=== PATIENT | male | born 1940 | race African-American/Black ===

== ENCOUNTER 2018-11-16 15:13 | Inpatient (IN) | payer MEDICARE, OTHER ==
[~2018-11-16] VITALS: Ht 175.3 cm; Wt 79.4 kg
[2018-11-16] MEDS ORDERED: SODIUM CHLORIDE 0.9% 1,000 ML IV ONE (15:41)
[2018-11-16] MEDS ORDERED: DEXTROSE 50% WATER 50ML SYRINGE IV ONE (15:45)
[2018-11-16 16:30] LABS: EOSINOPHILS % 0.4 % (0.0-5.0); HEMATOCRIT. 42.7 % (42.0-52.0); HEMOGLOBIN. 14.2 g/dL (14.0-18.0); LYMPHOCYTES % 14.7 % (20.0-50.0); MEAN CORPUSCULAR HEMOGLOBIN 27.5 pg (28.0-32.0); MEAN CORPUSCULAR VOLUME 82.7 fL (80.0-94.0); MEAN PLATELET VOLUME 8.2 fl (7.4-10.4); MONOCYTES % 5.1 % (2.0-8.0); NEUTROPHILS % 78.8 % (40.0-76.0); PLATELET 330 x1000/uL (130-400); RED BLOOD CELL COUNT 5.17 mill/uL (4.7-6.1); RED CELL DISTRIBUTION WIDTH 15.2 % (11.6-14.6)
[2018-11-16 16:37] LABS: CHLORIDE 104 mEq/L (98-107)
[2018-11-16 16:40] LABS: PROTHROMBIN TIME 10.7 sec (9.6-11.0)
[2018-11-16 16:41] LABS: ETHANOL BLOOD < 10 mg/dL
[2018-11-16] MEDS ORDERED: ASPIRIN 325MG EC TABLET PO ONE (17:45)
[2018-11-16 17:48] LABS: CLARITY URINE CLEAR (CLEAR); COLOR URINE YELLOW (YELLOW); KETONES URINE 1+ (NEGATIVE); LEUKOCYTE ESTERASE URINE 1+ (NEGATIVE); NITRITE URINE NEGATIVE (NEGATIVE); OCCULT BLOOD URINE NEGATIVE (NEGATIVE); PROTEIN URINE NEGATIVE (NEGATIVE); SPECIFIC GRAVITY URINE 1.022 (1.005-1.030)
[2018-11-16 17:57] LABS: *AMPHETAMINES SCREEN URINE NEGATIVE (NEGATIVE); *BARBITURATES SCREEN URINE NEGATIVE (NEGATIVE); *BENZODIAZEPINES SCREEN URINE NEGATIVE (NEGATIVE); *COCAINE SCREEN URINE NEGATIVE (NEGATIVE); METHADONE URINE SCREEN NEGATIVE (NEGATIVE)
[2018-11-16 17:58] LABS: CANNABINOID URINE SCREEN NEGATIVE (NEGATIVE); OPIATES URINE SCREEN NEGATIVE (NEGATIVE); PHENCYCLIDINE URINE SCREEN NEGATIVE (NEGATIVE)
[2018-11-16] MEDS ORDERED: CEFTRIAXONE 1 G PREMIX 50 ML IV ONE (19:15)
[2018-11-16] MEDS ORDERED: MAGNESIUM/ALUMINUM HYDROXIDE/SIMETHICONE 30ML UDC PO PRN (20:15)
[2018-11-16] MEDS ORDERED: ONDANSETRON HCL 4MG/2ML INJ IV PRN (20:15)
[2018-11-16] MEDS ORDERED: ACETAMINOPHEN 325MG TABLET PO PRN (20:15)
[2018-11-16] MEDS ORDERED: LORAZEPAM 2MG/ML CPJ IV PRN (20:15)
[2018-11-16] MEDS ORDERED: HYDROMORPHONE HCL/PF 2MG/ML CPJ IV PRN (20:15)
[2018-11-16] MEDS ORDERED: HYDROCODONE/ACETAMINOPHEN 5/325MG TABLET PO PRN (20:15)
[2018-11-16] MEDS ORDERED: IPRATROPIUM/ALBUTEROL 0.5-3(2.5)MG/3ML NEB INH PRN (20:15)
[2018-11-16] MEDS ORDERED: GUAIFENESIN 200MG/10ML SUGAR FREE UDC PO PRN (20:15)
[2018-11-16] MEDS ORDERED: DIPHENHYDRAMINE 50MG/ML VIAL IV PRN (20:15)
[2018-11-16] MEDS ORDERED: NA PHOS,M-B/NA PHOS,DI-BA ENEMA 118ML PR PRN (20:15)
[2018-11-16] MEDS ORDERED: DOCUSATE SODIUM 100MG CAPSULE PO PRN (20:15)
[2018-11-16 23:04] LABS: CHLORIDE 110 mEq/L (98-107)
[2018-11-16 23:20] VITALS: BP 182/81
[2018-11-16 23:33] VITALS: BP 182/81
[2018-11-17] VITALS (7 sets, daily range): BP systolic 122–175; BP diastolic 66–91
[2018-11-17] MEDS: CLONIDINE 0.1MG TABLET PO PRN (00:35)
[2018-11-17] MEDS: DEXT 5%/0.45% NACL 1000ML 1,000 ML IV SCH ×2 (01:10→17:47)
[2018-11-17] MEDS ORDERED: DEXTROSE 50% WATER 50ML SYRINGE IV PRN (05:15)
[2018-11-17] MEDS: BLOOD SUGAR DIAGNOSTIC STRIP TEST SCH ×4 (07:38→21:49)
[2018-11-17] MEDS: INSULIN LISPRO 100 UNITS/ML SUBCUT SCH ×4 (07:38→21:00)
[2018-11-17 07:48] LABS: BASOPHILS % 0.6 % (0.0-2.0); EOSINOPHILS % 1.6 % (0.0-5.0); HEMATOCRIT. 38.4 % (42.0-52.0); HEMOGLOBIN. 12.8 g/dL (14.0-18.0); LYMPHOCYTES % 22.9 % (20.0-50.0); MEAN CORPUSCULAR HEMOGLOBIN 27.4 pg (28.0-32.0); MEAN CORPUSCULAR VOLUME 82.2 fL (80.0-94.0); MEAN PLATELET VOLUME 8.4 fl (7.4-10.4); MONOCYTES % 10.2 % (2.0-8.0); NEUTROPHILS % 64.7 % (40.0-76.0); PLATELET 259 x1000/uL (130-400); RED BLOOD CELL COUNT 4.67 mill/uL (4.7-6.1); RED CELL DISTRIBUTION WIDTH 15.4 % (11.6-14.6)
[2018-11-17 08:19] LABS: CHLORIDE 110 mEq/L (98-107)
[2018-11-17 08:35] LABS: T4 FREE 1.03 ng/dL (0.76-1.46)
[2018-11-17 08:36] LABS: LDL CHOLESTEROL 73 mg/dL (5-100)
[2018-11-17 08:37] LABS: HDL CHOLESTEROL 46 mg/dL (40-59)
[2018-11-17] MEDS: ASPIRIN 81MG EC TABLET PO SCH (09:42)
[2018-11-18] VITALS: BP 139/84
[2018-11-18 04:00] VITALS: BP 141/71
[2018-11-18] MEDS: BLOOD SUGAR DIAGNOSTIC STRIP TEST SCH ×4 (06:11→21:00)
[2018-11-18] MEDS: INSULIN LISPRO 100 UNITS/ML SUBCUT SCH ×4 (07:25→21:00)
[2018-11-18 08:00] VITALS: BP 154/84
[2018-11-18] MEDS: ASPIRIN 81MG EC TABLET PO SCH (09:49)
[2018-11-18] MEDS: DEXT 5%/0.45% NACL 1000ML 1,000 ML IV SCH (09:53)
[2018-11-18 12:05] VITALS: BP 146/79
[2018-11-18 15:39] VITALS: BP 143/74
[2018-11-18 20:00] VITALS: BP 170/93
[2018-11-19] VITALS: BP 152/89
[2018-11-19] MEDS: DEXT 5%/0.45% NACL 1000ML 1,000 ML IV SCH ×2 (03:06→21:50)
[2018-11-19 04:00] VITALS: BP 128/76
[2018-11-19] MEDS: BLOOD SUGAR DIAGNOSTIC STRIP TEST SCH ×4 (06:47→21:41)
[2018-11-19 07:08] LABS: BASOPHILS % 0.7 % (0.0-2.0); EOSINOPHILS % 2.9 % (0.0-5.0); HEMOGLOBIN. 12.7 g/dL (14.0-18.0); LYMPHOCYTES % 26.9 % (20.0-50.0); MEAN CORPUSCULAR HEMOGLOBIN 27.6 pg (28.0-32.0); MEAN CORPUSCULAR VOLUME 82.6 fL (80.0-94.0); MEAN PLATELET VOLUME 7.9 fl (7.4-10.4); MONOCYTES % 8.6 % (2.0-8.0); NEUTROPHILS % 60.9 % (40.0-76.0); PLATELET 253 x1000/uL (130-400); RED CELL DISTRIBUTION WIDTH 15.9 % (11.6-14.6)
[2018-11-19 07:15] LABS: CHLORIDE 109 mEq/L (98-107)
[2018-11-19 08:00] VITALS: BP 158/81
[2018-11-19] MEDS: INSULIN LISPRO 100 UNITS/ML SUBCUT SCH ×4 (08:10→21:00)
[2018-11-19] MEDS: ASPIRIN 81MG EC TABLET PO SCH (09:43)
[2018-11-19 12:00] VITALS: BP 138/81
[2018-11-19 16:00] VITALS: BP 128/79
[2018-11-19 20:00] VITALS: BP 157/84
[2018-11-20] VITALS (8 sets, daily range): BP systolic 134–166; BP diastolic 68–86
[2018-11-20] MEDS: BLOOD SUGAR DIAGNOSTIC STRIP TEST SCH ×3 (06:24→17:40)
[2018-11-20] MEDS: INSULIN LISPRO 100 UNITS/ML SUBCUT SCH ×3 (06:25→17:59)
[2018-11-20] MEDS: ASPIRIN 81MG EC TABLET PO SCH (08:42)
[2018-11-20] MEDS: CLONIDINE 0.1MG TABLET PO PRN (11:59)
[2018-11-20] MEDS: DEXT 5%/0.45% NACL 1000ML 1,000 ML IV SCH (12:00)
== END 2018-11-20 19:52 | DRG 637 ==
LOC: ER 15:13 → 7WST 19:13 → EDBEDREQ 19:18 → ENRESERV 21:49 → UNDODISIN 11-17 16:02
PROVIDERS: ADMIT Internal Medicine; ATTEND Internal Medicine
DX: E11.649 Type 2 diabetes mellitus with hypoglycemia without coma (principal); G93.41 Metabolic encephalopathy; I10 Essential (primary) hypertension; Z79.82 Long term (current) use of aspirin; Z79.899 Other long term (current) drug therapy
CPT/HCPCS: 36415; 71045; 80048; 80061; 80305; 80320; 82962; 83735; 83880; 84439; 84443; 84484; 93005; 97162; 99285; J0696; J1815; J7030; G0480

== ENCOUNTER 2018-11-26 11:30 | Inpatient (IN) | payer MEDICARE, OTHER ==
[~2018-11-26] VITALS: Ht 154.9 cm; Wt 66.2 kg
[2018-11-26 12:23] LABS: BASOPHILS % 0.6 % (0.0-2.0); EOSINOPHILS % 0.6 % (0.0-5.0); HEMATOCRIT. 44.6 % (42.0-52.0); HEMOGLOBIN. 14.7 g/dL (14.0-18.0); LYMPHOCYTES % 12.4 % (20.0-50.0); MEAN CORPUSCULAR VOLUME 84.6 fL (80.0-94.0); MEAN PLATELET VOLUME 8.8 fl (7.4-10.4); MONOCYTES % 6.9 % (2.0-8.0); NEUTROPHILS % 79.5 % (40.0-76.0); PLATELET 287 x1000/uL (130-400); RED BLOOD CELL COUNT 5.27 mill/uL (4.7-6.1); RED CELL DISTRIBUTION WIDTH 16.4 % (11.6-14.6)
[2018-11-26 12:27] LABS: CHLORIDE 107 mEq/L (98-107)
[2018-11-26 12:36] LABS: ETHANOL BLOOD < 10 mg/dL
[2018-11-26 16:25] LABS: *BARBITURATES SCREEN URINE NEGATIVE (NEGATIVE); *BENZODIAZEPINES SCREEN URINE NEGATIVE (NEGATIVE); *COCAINE SCREEN URINE NEGATIVE (NEGATIVE)
[2018-11-26 16:26] LABS: *AMPHETAMINES SCREEN URINE NEGATIVE (NEGATIVE); CANNABINOID URINE SCREEN NEGATIVE (NEGATIVE); METHADONE URINE SCREEN NEGATIVE (NEGATIVE); OPIATES URINE SCREEN NEGATIVE (NEGATIVE); PHENCYCLIDINE URINE SCREEN NEGATIVE (NEGATIVE)
[2018-11-26 21:52] VITALS: BP 151/96
[2018-11-26] MEDS ORDERED: HYDROCODONE/ACETAMINOPHEN 5/325MG TABLET PO PRN (22:45)
[2018-11-26] MEDS ORDERED: CLONIDINE 0.1MG TABLET PO PRN (22:45)
[2018-11-26] MEDS ORDERED: DEXTROSE 50% WATER 50ML SYRINGE IV PRN (22:45)
[2018-11-26] MEDS ORDERED: ACETAMINOPHEN 325MG TABLET PO PRN (22:45)
[2018-11-26] MEDS ORDERED: ONDANSETRON HCL 4MG/2ML INJ IV PRN (22:45)
[2018-11-26] MEDS: SODIUM CHLORIDE 0.9% 1,000 ML IV SCH (23:19)
[2018-11-26] MEDS: LOSARTAN POTASSIUM 25 MG TABLET PO SCH (23:19)
[2018-11-27 04:00] VITALS: BP 109/61
[2018-11-27] MEDS: BLOOD SUGAR DIAGNOSTIC STRIP TEST SCH ×4 (05:07→20:55)
[2018-11-27 06:32] LABS: HEMATOCRIT. 34.6 % (42.0-52.0); HEMOGLOBIN. 11.7 g/dL (14.0-18.0); MEAN CORPUSCULAR HEMOGLOBIN 28.1 pg (28.0-32.0); MEAN CORPUSCULAR VOLUME 82.6 fL (80.0-94.0); MEAN PLATELET VOLUME 8.3 fl (7.4-10.4); PLATELET 221 x1000/uL (130-400); RED BLOOD CELL COUNT 4.19 mill/uL (4.7-6.1); RED CELL DISTRIBUTION WIDTH 15.8 % (11.6-14.6)
[2018-11-27 06:53] LABS: CHLORIDE 115 mEq/L (98-107)
[2018-11-27 07:00] LABS: LDL CHOLESTEROL 62 mg/dL (5-100)
[2018-11-27 07:02] LABS: CREATINE KINASE 93 IU/L (39-308); HDL CHOLESTEROL 35 mg/dL (40-59)
[2018-11-27 07:04] LABS: CREATINE KINASE MB FRACTION 1.3 ng/mL (0.5-3.6)
[2018-11-27 08:00] VITALS: BP 112/72
[2018-11-27] MEDS: INSULIN LISPRO 100 UNITS/ML SUBCUT SCH ×4 (08:10→20:55)
[2018-11-27] MEDS: LOSARTAN POTASSIUM 25 MG TABLET PO SCH (09:01)
[2018-11-27] MEDS: ENOXAPARIN 40MG/0.4ML SYR SUBCUT SCH (09:02)
[2018-11-27] MEDS: SODIUM CHLORIDE 0.9% 1,000 ML IV SCH ×2 (09:02→18:25)
[2018-11-27 12:04] VITALS: BP 121/71
[2018-11-27 12:35] LABS: PLATELET ESTIMATE NORMAL
[2018-11-27 17:19] VITALS: BP 101/66
[2018-11-27 20:00] VITALS: BP 108/66
[2018-11-28] VITALS: BP 109/72
[2018-11-28 04:00] VITALS: BP 122/65
[2018-11-28] MEDS: BLOOD SUGAR DIAGNOSTIC STRIP TEST SCH ×4 (06:51→21:12)
[2018-11-28 08:00] VITALS: BP 130/77
[2018-11-28] MEDS: INSULIN LISPRO 100 UNITS/ML SUBCUT SCH ×4 (08:10→21:00)
[2018-11-28] MEDS: LOSARTAN POTASSIUM 25 MG TABLET PO SCH (09:30)
[2018-11-28] MEDS: ENOXAPARIN 40MG/0.4ML SYR SUBCUT SCH (09:31)
[2018-11-28 12:00] VITALS: BP 128/74
[2018-11-28 16:00] VITALS: BP 142/87
[2018-11-28 20:00] VITALS: BP 135/81
[2018-11-29] VITALS: BP 154/101
[2018-11-29 04:00] VITALS: BP 140/78
[2018-11-29] MEDS: BLOOD SUGAR DIAGNOSTIC STRIP TEST SCH ×4 (06:55→21:22)
[2018-11-29 08:00] VITALS: BP 152/78
[2018-11-29] MEDS: INSULIN LISPRO 100 UNITS/ML SUBCUT SCH ×4 (08:10→21:00)
[2018-11-29] MEDS: LOSARTAN POTASSIUM 25 MG TABLET PO SCH (09:00)
[2018-11-29] MEDS: ENOXAPARIN 40MG/0.4ML SYR SUBCUT SCH (09:45)
[2018-11-29 12:00] VITALS: BP 120/68
[2018-11-29 16:00] VITALS: BP 128/84
[2018-11-29 17:02] VITALS: BP 138/79
== END 2018-11-29 22:05 | DRG 312 ==
LOC: ER 11:30 → 7WST 16:03 → EDBEDREQTM 16:11 → EDBEDREQ 16:11 → ENRESERV 21:18
PROVIDERS: ADMIT Internal Medicine; ATTEND Internal Medicine
DX: R55 Syncope and collapse (principal); N17.9 Acute kidney failure, unspecified; E11.9 Type 2 diabetes mellitus without complications; I10 Essential (primary) hypertension; F03.90 Unspecified dementia, unspecified severity, without behavioral disturbance, psychotic disturbance, mood disturbance, and anxiety
CPT/HCPCS: 36415; 71045; 80048; 80061; 80305; 80320; 82550; 82553; 82962; 83036; 84484; 93005; 97162; 97166; 97530; 97535; 99285; J1650; J7030; G0480

== ENCOUNTER 2020-07-13 12:29 | Inpatient (IN) | payer MEDICARE, OTHER ==
[~2020-07-13] VITALS: Ht 175.3 cm; Wt 66.7 kg
[2020-07-13] MEDS ORDERED: SODIUM CHLORIDE 0.9% 1,000 ML IV ONE (12:45)
[2020-07-13 13:09] LABS: BASOPHILS % 0.5 % (0.0-2.0); EOSINOPHILS % 1.3 % (0.0-5.0); HEMATOCRIT. 41.8 % (42.0-52.0); HEMOGLOBIN. 13.6 g/dL (14.0-18.0); LYMPHOCYTES % 15.7 % (20.0-50.0); MEAN CORPUSCULAR HEMOGLOBIN 26.8 pg (28.0-32.0); MEAN CORPUSCULAR VOLUME 82.5 fL (80.0-94.0); MEAN PLATELET VOLUME 8.3 fl (7.4-10.4); NEUTROPHILS % 73.5 % (40.0-76.0); PLATELET 239 x1000/uL (130-400); RED BLOOD CELL COUNT 5.07 mill/uL (4.7-6.1); RED CELL DISTRIBUTION WIDTH 15.3 % (11.6-14.6)
[2020-07-13 13:17] LABS: CHLORIDE 109 mEq/L (98-107)
[2020-07-13 13:24] LABS: INR 1.1; PROTHROMBIN TIME 11.4 sec (9.6-11.0)
[2020-07-13 13:48] LABS: CLARITY URINE CLOUDY (CLEAR); COLOR URINE YELLOW (YELLOW); KETONES URINE TRACE (NEGATIVE); LEUKOCYTE ESTERASE URINE 2+ (NEGATIVE); NITRITE URINE NEGATIVE (NEGATIVE); OCCULT BLOOD URINE 1+ (NEGATIVE); PROTEIN URINE 1+ (NEGATIVE); SPECIFIC GRAVITY URINE 1.021 (1.005-1.030)
[2020-07-13] MEDS ORDERED: PIPERACILLIN/TAZ 3.375G PREMIX 50 ML IV NR (14:00)
[2020-07-13] MEDS ORDERED: PIPERACILLIN/TAZ 3.375G PREMIX 50 ML IV ONE (14:00)
[2020-07-13] MEDS ORDERED: VANCOMYCIN 1 G PREMIX 200 ML IV NR (14:00)
[2020-07-13] MEDS ORDERED: SODIUM CHLORIDE 0.9% 1000ML BAG (SEPSIS BOLUS) IV NR (14:00)
[2020-07-13] MEDS ORDERED: ONDANSETRON HCL 4MG/2ML INJ IV PRN (18:30)
[2020-07-13] MEDS ORDERED: DOCUSATE SODIUM 100MG CAPSULE PO PRN (18:30)
[2020-07-13] MEDS ORDERED: DEXTROSE 50% WATER 50ML SYRINGE IV PRN (18:30)
[2020-07-13] MEDS ORDERED: HYDRALAZINE 20MG/ML VIAL IV PRN (18:30)
[2020-07-13] MEDS ORDERED: ACETAMINOPHEN 325MG TABLET PO PRN (18:30)
[2020-07-13] MEDS ORDERED: MAGNESIUM/ALUMINUM HYDROXIDE/SIMETHICONE 30ML UDC PO PRN (18:30)
[2020-07-13] MEDS ORDERED: PIPERACILLIN/TAZ 3.375G PREMIX 50 ML IV SCH (18:30)
[2020-07-13] MEDS: SODIUM CHLORIDE 0.45% 1,000 ML IV SCH (19:10)
[2020-07-13] MEDS: INSULIN LISPRO 100 UNITS/ML SUBCUT SCH (20:20)
[2020-07-13] MEDS: BLOOD SUGAR DIAGNOSTIC STRIP TEST SCH (20:20)
[2020-07-13] MEDS: ENOXAPARIN 40MG/0.4ML SYR SUBCUT SCH (20:20)
[2020-07-13] MEDS: PIPERACILLIN/TAZOBACTAM 2.25 G in DEXTROSE 5% WATER 50 ML IV SCH (21:56)
[2020-07-13] MEDS: SODIUM CHLORIDE 0.9% INJ 3ML FLUSH IVF SCH (21:56)
[2020-07-13 22:30] VITALS: BP 151/84
[2020-07-14] VITALS: BP 151/84
[2020-07-14 00:59] LABS: CREATINE KINASE MB FRACTION 5.8 ng/mL (0.5-3.6)
[2020-07-14] MEDS ORDERED: LOSA25TA26 MT (03:36)
[2020-07-14] MEDS ORDERED: DONE5TAB7 MT (03:36)
[2020-07-14] MEDS ORDERED: CLON0.1T PO (03:36)
[2020-07-14 04:00] VITALS: BP 172/96
[2020-07-14] MEDS: PIPERACILLIN/TAZOBACTAM 2.25 G in DEXTROSE 5% WATER 50 ML IV SCH ×3 (06:17→21:24)
[2020-07-14] MEDS: SODIUM CHLORIDE 0.9% INJ 3ML FLUSH IVF SCH ×3 (06:17→21:24)
[2020-07-14] MEDS: BLOOD SUGAR DIAGNOSTIC STRIP TEST SCH ×4 (06:17→21:07)
[2020-07-14] MEDS: INSULIN LISPRO 100 UNITS/ML SUBCUT SCH ×4 (07:15→21:00)
[2020-07-14 07:22] LABS: CHLORIDE 115 mEq/L (98-107)
[2020-07-14 07:26] LABS: BASOPHILS % 0.5 % (0.0-2.0); EOSINOPHILS % 2.6 % (0.0-5.0); HEMATOCRIT. 39.8 % (42.0-52.0); HEMOGLOBIN. 12.8 g/dL (14.0-18.0); MEAN CORPUSCULAR HEMOGLOBIN 26.7 pg (28.0-32.0); MEAN CORPUSCULAR VOLUME 82.7 fL (80.0-94.0); MEAN PLATELET VOLUME 8.6 fl (7.4-10.4); MONOCYTES % 7.9 % (2.0-8.0); PLATELET 225 x1000/uL (130-400); RED BLOOD CELL COUNT 4.81 mill/uL (4.7-6.1); RED CELL DISTRIBUTION WIDTH 15.5 % (11.6-14.6)
[2020-07-14 07:31] LABS: HDL CHOLESTEROL 49 mg/dL (40-59)
[2020-07-14 07:34] LABS: T4 FREE 1.13 ng/dL (0.76-1.46)
[2020-07-14 07:35] LABS: LDL CHOLESTEROL 55 mg/dL (5-100)
[2020-07-14 07:39] LABS: CREATINE KINASE 311 IU/L (39-308)
[2020-07-14 08:00] VITALS: BP 169/90
[2020-07-14] MEDS ORDERED: PNEUMOCOCCAL 23-VAL P-SAC VAC 0.5 ML IM ONE (09:00)
[2020-07-14] MEDS ORDERED: INFLUENZA VACCINE 05/PF 0.5 ML VIAL IM ONE (09:00)
[2020-07-14] MEDS: CLONIDINE 0.1MG TABLET PO PRN (09:08)
[2020-07-14 12:00] VITALS: BP 130/77
[2020-07-14 16:00] VITALS: BP 132/76
[2020-07-14] MEDS: SODIUM CHLORIDE 0.45% 1,000 ML IV SCH (18:46)
[2020-07-14 20:00] VITALS: BP 131/67
[2020-07-14] MEDS: ENOXAPARIN 40MG/0.4ML SYR SUBCUT SCH (20:36)
[2020-07-14 21:47] LABS: VITAMIN B12 SERUM 667 pg/mL (211-911)
[2020-07-15] VITALS (7 sets, daily range): BP systolic 120–173; BP diastolic 69–92
[2020-07-15] MEDS: PIPERACILLIN/TAZOBACTAM 2.25 G in DEXTROSE 5% WATER 50 ML IV SCH ×3 (05:17→21:38)
[2020-07-15] MEDS: SODIUM CHLORIDE 0.9% INJ 3ML FLUSH IVF SCH ×3 (05:18→21:38)
[2020-07-15] MEDS: BLOOD SUGAR DIAGNOSTIC STRIP TEST SCH ×4 (06:16→21:00)
[2020-07-15] MEDS: INSULIN LISPRO 100 UNITS/ML SUBCUT SCH ×4 (06:16→21:00)
[2020-07-15] MEDS: CLONIDINE 0.1MG TABLET PO PRN (08:54)
[2020-07-15 16:48] LABS: *AMPHETAMINES SCREEN URINE NEGATIVE (NEGATIVE); *BARBITURATES SCREEN URINE NEGATIVE (NEGATIVE); *BENZODIAZEPINES SCREEN URINE NEGATIVE (NEGATIVE)
[2020-07-15 16:49] LABS: *COCAINE SCREEN URINE NEGATIVE (NEGATIVE); CANNABINOID URINE SCREEN NEGATIVE (NEGATIVE); METHADONE URINE SCREEN NEGATIVE (NEGATIVE); OPIATES URINE SCREEN NEGATIVE (NEGATIVE); PHENCYCLIDINE URINE SCREEN NEGATIVE (NEGATIVE)
[2020-07-15] MEDS: SODIUM CHLORIDE 0.45% 1,000 ML IV SCH (18:07)
[2020-07-15] MEDS: ENOXAPARIN 40MG/0.4ML SYR SUBCUT SCH (21:37)
[2020-07-16] VITALS: BP 154/77
[2020-07-16 04:00] VITALS: BP 137/87
[2020-07-16] MEDS: PIPERACILLIN/TAZOBACTAM 3.375 G in DEXT 5% WATER 100 ML IV SCH ×4 (04:23→23:18)
[2020-07-16] MEDS: SODIUM CHLORIDE 0.9% INJ 3ML FLUSH IVF SCH ×3 (05:13→22:20)
[2020-07-16] MEDS: BLOOD SUGAR DIAGNOSTIC STRIP TEST SCH ×4 (06:44→20:45)
[2020-07-16] MEDS: INSULIN LISPRO 100 UNITS/ML SUBCUT SCH ×4 (07:15→20:46)
[2020-07-16 08:00] VITALS: BP 136/78
[2020-07-16] MEDS: LORAZEPAM 2MG/ML CPJ IV PRN ×3 (08:23→20:49)
[2020-07-16] MEDS: DIPHENHYDRAMINE 50MG/ML VIAL IV PRN (11:41)
[2020-07-16 12:00] VITALS: BP 139/92
[2020-07-16] MEDS: CLONIDINE 0.1MG TABLET PO PRN (12:23)
[2020-07-16 16:00] VITALS: BP 151/96
[2020-07-16] MEDS: SODIUM CHLORIDE 0.45% 1,000 ML IV SCH (17:12)
[2020-07-16 20:00] VITALS: BP 147/86
[2020-07-16] MEDS: ENOXAPARIN 40MG/0.4ML SYR SUBCUT SCH (20:49)
[2020-07-17] VITALS: BP 139/80
[2020-07-17] MEDS: LORAZEPAM 2MG/ML CPJ IV PRN ×2 (02:42→10:13)
[2020-07-17 04:00] VITALS: BP 154/80
[2020-07-17] MEDS: SODIUM CHLORIDE 0.9% INJ 3ML FLUSH IVF SCH ×3 (05:20→21:11)
[2020-07-17] MEDS: PIPERACILLIN/TAZOBACTAM 3.375 G in DEXT 5% WATER 100 ML IV SCH ×3 (05:20→18:11)
[2020-07-17] MEDS: BLOOD SUGAR DIAGNOSTIC STRIP TEST SCH ×4 (06:18→20:18)
[2020-07-17] MEDS: INSULIN LISPRO 100 UNITS/ML SUBCUT SCH ×4 (06:19→20:18)
[2020-07-17 08:00] VITALS: BP 130/31
[2020-07-17 12:00] VITALS: BP 146/86
[2020-07-17 16:00] VITALS: BP 142/88
[2020-07-17] MEDS: SODIUM CHLORIDE 0.45% 1,000 ML IV SCH (18:11)
[2020-07-17 20:00] VITALS: BP 146/87
[2020-07-17] MEDS: ENOXAPARIN 40MG/0.4ML SYR SUBCUT SCH (20:14)
[2020-07-18] VITALS (7 sets, daily range): BP systolic 135–167; BP diastolic 67–86
[2020-07-18] MEDS: PIPERACILLIN/TAZOBACTAM 3.375 G in DEXT 5% WATER 100 ML IV SCH ×4 (01:45→17:09)
[2020-07-18] MEDS: SODIUM CHLORIDE 0.9% INJ 3ML FLUSH IVF SCH ×3 (05:15→20:12)
[2020-07-18] MEDS: INSULIN LISPRO 100 UNITS/ML SUBCUT SCH ×4 (05:18→20:20)
[2020-07-18] MEDS: BLOOD SUGAR DIAGNOSTIC STRIP TEST SCH ×4 (05:18→20:12)
[2020-07-18 06:30] LABS: BASOPHILS % 0.7 % (0.0-2.0); EOSINOPHILS % 2.8 % (0.0-5.0); HEMATOCRIT. 40.1 % (42.0-52.0); HEMOGLOBIN. 13.3 g/dL (14.0-18.0); LYMPHOCYTES % 18.9 % (20.0-50.0); MEAN CORPUSCULAR VOLUME 81.5 fL (80.0-94.0); MEAN PLATELET VOLUME 9.1 fl (7.4-10.4); MONOCYTES % 11.6 % (2.0-8.0); PLATELET 268 x1000/uL (130-400); RED BLOOD CELL COUNT 4.92 mill/uL (4.7-6.1); RED CELL DISTRIBUTION WIDTH 15.4 % (11.6-14.6)
[2020-07-18 07:19] LABS: CHLORIDE 110 mEq/L (98-107)
[2020-07-18] MEDS: CLONIDINE 0.1MG TABLET PO PRN (12:25)
[2020-07-18] MEDS: SODIUM CHLORIDE 0.45% 1,000 ML IV SCH (17:29)
[2020-07-18] MEDS: ENOXAPARIN 40MG/0.4ML SYR SUBCUT SCH (20:12)
[2020-07-18] MEDS: DIPHENHYDRAMINE 50MG/ML VIAL IV PRN (21:27)
[2020-07-19] VITALS: BP 170/93
[2020-07-19] MEDS: CLONIDINE 0.1MG TABLET PO PRN ×2 (00:01→18:23)
[2020-07-19 04:00] VITALS: BP 130/71
[2020-07-19] MEDS: SODIUM CHLORIDE 0.9% INJ 3ML FLUSH IVF SCH ×3 (05:35→21:34)
[2020-07-19] MEDS: BLOOD SUGAR DIAGNOSTIC STRIP TEST SCH ×3 (05:35→21:34)
[2020-07-19] MEDS: INSULIN LISPRO 100 UNITS/ML SUBCUT SCH ×3 (05:35→21:00)
[2020-07-19 08:00] VITALS: BP 156/94
[2020-07-19 12:00] VITALS: BP 146/77
[2020-07-19 16:00] VITALS: BP 177/93
[2020-07-19] MEDS: SODIUM CHLORIDE 0.45% 1,000 ML IV SCH (18:24)
[2020-07-19 20:00] VITALS: BP 180/95
[2020-07-19] MEDS: ENOXAPARIN 40MG/0.4ML SYR SUBCUT SCH (21:30)
[2020-07-20] VITALS (7 sets, daily range): BP systolic 101–180; BP diastolic 56–95
[2020-07-20] MEDS: IPRATROPIUM/ALBUTEROL 0.5-3(2.5)MG/3ML NEB NEB PRN ×2 (02:13→12:06)
[2020-07-20] MEDS: SODIUM CHLORIDE 0.9% INJ 3ML FLUSH IVF SCH ×3 (05:10→21:40)
[2020-07-20] MEDS: INSULIN LISPRO 100 UNITS/ML SUBCUT SCH ×4 (06:45→21:00)
[2020-07-20] MEDS: BLOOD SUGAR DIAGNOSTIC STRIP TEST SCH ×4 (06:45→21:38)
[2020-07-20] MEDS: SODIUM CHLORIDE 0.45% 1,000 ML IV SCH ×2 (17:35→21:42)
[2020-07-20] MEDS: ENOXAPARIN 40MG/0.4ML SYR SUBCUT SCH (21:40)
[2020-07-21] VITALS (7 sets, daily range): BP systolic 132–158; BP diastolic 73–82
[2020-07-21] MEDS: BLOOD SUGAR DIAGNOSTIC STRIP TEST SCH ×4 (05:59→20:47)
[2020-07-21] MEDS: INSULIN LISPRO 100 UNITS/ML SUBCUT SCH ×4 (05:59→20:47)
[2020-07-21] MEDS: SODIUM CHLORIDE 0.9% INJ 3ML FLUSH IVF SCH ×3 (06:00→20:49)
[2020-07-21] MEDS ORDERED: IPRATROPIUM/ALBUTEROL 0.5-3(2.5)MG/3ML NEB HHN PRN (14:30)
[2020-07-21] MEDS: IPRATROPIUM/ALBUTEROL 0.5-3(2.5)MG/3ML NEB HHN SCH ×2 (15:58→21:19)
[2020-07-21] MEDS: ENOXAPARIN 40MG/0.4ML SYR SUBCUT SCH (20:46)
[2020-07-21] MEDS: SODIUM CHLORIDE 0.45% 1,000 ML IV SCH (20:49)
[2020-07-22] VITALS: BP 139/77
[2020-07-22] MEDS: IPRATROPIUM/ALBUTEROL 0.5-3(2.5)MG/3ML NEB HHN SCH ×6 (00:42→21:33)
[2020-07-22] MEDS: ACETYLCYSTEINE 100MG/ML 10% VIAL 4ML INH SCH ×3 (00:42→16:32)
[2020-07-22 04:00] VITALS: BP 142/76
[2020-07-22] MEDS: SODIUM CHLORIDE 0.9% INJ 3ML FLUSH IVF SCH ×3 (06:00→21:15)
[2020-07-22] MEDS: INSULIN LISPRO 100 UNITS/ML SUBCUT SCH ×4 (06:39→21:00)
[2020-07-22] MEDS: BLOOD SUGAR DIAGNOSTIC STRIP TEST SCH ×4 (06:39→21:14)
[2020-07-22 08:00] VITALS: BP 109/56
[2020-07-22 12:00] VITALS: BP 135/75
[2020-07-22 16:00] VITALS: BP 157/82
[2020-07-22] MEDS: GUAIFENESIN 200MG/10ML SUGAR FREE UDC PO PRN (16:36)
[2020-07-22 20:00] VITALS: BP 153/87
[2020-07-22] MEDS: ENOXAPARIN 40MG/0.4ML SYR SUBCUT SCH (21:15)
[2020-07-23] VITALS: BP 178/95
[2020-07-23] MEDS: CLONIDINE 0.1MG TABLET PO PRN (00:15)
[2020-07-23] MEDS: ACETYLCYSTEINE 100MG/ML 10% VIAL 4ML INH SCH ×4 (01:30→21:15)
[2020-07-23] MEDS: IPRATROPIUM/ALBUTEROL 0.5-3(2.5)MG/3ML NEB HHN SCH ×6 (01:30→21:15)
[2020-07-23 04:00] VITALS: BP 152/80
[2020-07-23] MEDS: BLOOD SUGAR DIAGNOSTIC STRIP TEST SCH ×4 (06:45→20:16)
[2020-07-23] MEDS: INSULIN LISPRO 100 UNITS/ML SUBCUT SCH ×4 (07:15→20:16)
[2020-07-23 08:00] VITALS: BP 117/75
[2020-07-23 12:00] VITALS: BP 145/83
[2020-07-23] MEDS: SODIUM CHLORIDE 0.9% INJ 3ML FLUSH IVF SCH ×2 (13:44→20:16)
[2020-07-23] MEDS: LORAZEPAM 2MG/ML CPJ IV PRN ×2 (15:23→22:32)
[2020-07-23 16:00] VITALS: BP 141/87
[2020-07-23 20:00] VITALS: BP 95/88
[2020-07-23] MEDS: DIPHENHYDRAMINE 50MG/ML VIAL IV PRN (20:16)
[2020-07-23] MEDS: ENOXAPARIN 40MG/0.4ML SYR SUBCUT SCH (20:18)
[2020-07-24] VITALS: BP 149/95
[2020-07-24] MEDS: IPRATROPIUM/ALBUTEROL 0.5-3(2.5)MG/3ML NEB HHN SCH ×5 (00:43→20:34)
[2020-07-24 04:00] VITALS: BP 150/89
[2020-07-24] MEDS: ACETYLCYSTEINE 100MG/ML 10% VIAL 4ML INH SCH ×3 (04:26→16:12)
[2020-07-24] MEDS: INSULIN LISPRO 100 UNITS/ML SUBCUT SCH ×4 (06:07→21:00)
[2020-07-24] MEDS: BLOOD SUGAR DIAGNOSTIC STRIP TEST SCH ×4 (06:07→20:13)
[2020-07-24] MEDS: SODIUM CHLORIDE 0.9% INJ 3ML FLUSH IVF SCH ×3 (06:07→20:13)
[2020-07-24 08:00] VITALS: BP 172/96
[2020-07-24] MEDS: CLONIDINE 0.1MG TABLET PO PRN ×2 (08:58→21:52)
[2020-07-24 12:00] VITALS: BP 129/77
[2020-07-24 16:00] VITALS: BP 151/98
[2020-07-24 20:00] VITALS: BP 168/105
[2020-07-24] MEDS: ENOXAPARIN 40MG/0.4ML SYR SUBCUT SCH (20:12)
[2020-07-24] MEDS: GUAIFENESIN 200MG/10ML SUGAR FREE UDC PO PRN (20:12)
[2020-07-24] MEDS: DIPHENHYDRAMINE 50MG/ML VIAL IV PRN (20:14)
[2020-07-25] VITALS: BP 130/86
[2020-07-25] MEDS: IPRATROPIUM/ALBUTEROL 0.5-3(2.5)MG/3ML NEB HHN SCH ×5 (00:43→20:46)
[2020-07-25] MEDS: ACETYLCYSTEINE 100MG/ML 10% VIAL 4ML INH SCH ×3 (00:43→15:34)
[2020-07-25] MEDS: BLOOD SUGAR DIAGNOSTIC STRIP TEST SCH ×4 (06:19→21:02)
[2020-07-25] MEDS: SODIUM CHLORIDE 0.9% INJ 3ML FLUSH IVF SCH ×3 (06:19→23:09)
[2020-07-25] MEDS: INSULIN LISPRO 100 UNITS/ML SUBCUT SCH ×5 (07:04→21:00)
[2020-07-25 08:00] VITALS: BP 141/86
[2020-07-25 12:00] VITALS: BP 123/88
[2020-07-25 16:00] VITALS: BP 104/88
[2020-07-25 20:00] VITALS: BP 114/75
[2020-07-25] MEDS: ENOXAPARIN 40MG/0.4ML SYR SUBCUT SCH (21:02)
[2020-07-26] VITALS: BP 152/89
[2020-07-26] MEDS: ACETYLCYSTEINE 100MG/ML 10% VIAL 4ML INH SCH ×3 (00:50→15:44)
[2020-07-26] MEDS: IPRATROPIUM/ALBUTEROL 0.5-3(2.5)MG/3ML NEB HHN SCH ×6 (00:50→21:01)
[2020-07-26 04:00] VITALS: BP 164/94
[2020-07-26] MEDS: CLONIDINE 0.1MG TABLET PO PRN (06:00)
[2020-07-26] MEDS: BLOOD SUGAR DIAGNOSTIC STRIP TEST SCH ×4 (06:04→21:28)
[2020-07-26] MEDS: SODIUM CHLORIDE 0.9% INJ 3ML FLUSH IVF SCH ×3 (06:06→21:28)
[2020-07-26] MEDS: INSULIN LISPRO 100 UNITS/ML SUBCUT SCH ×4 (06:30→21:00)
[2020-07-26 08:00] VITALS: BP 143/73
[2020-07-26] MEDS: LORAZEPAM 2MG/ML CPJ IV PRN (09:32)
[2020-07-26 12:00] VITALS: BP 123/75
[2020-07-26 16:00] VITALS: BP 135/79
[2020-07-26 20:00] VITALS: BP 144/85
[2020-07-26] MEDS: ENOXAPARIN 40MG/0.4ML SYR SUBCUT SCH (21:28)
[2020-07-27] VITALS: BP 140/82
[2020-07-27] MEDS: IPRATROPIUM/ALBUTEROL 0.5-3(2.5)MG/3ML NEB HHN SCH ×6 (00:58→22:16)
[2020-07-27 04:00] VITALS: BP 140/86
[2020-07-27] MEDS: SODIUM CHLORIDE 0.9% INJ 3ML FLUSH IVF SCH ×3 (05:46→21:39)
[2020-07-27 06:16] LABS: CHLORIDE 107 mEq/L (98-107)
[2020-07-27 06:40] LABS: BASOPHILS % 0.6 % (0.0-2.0); HEMATOCRIT. 38.7 % (42.0-52.0); HEMOGLOBIN. 12.9 g/dL (14.0-18.0); LYMPHOCYTES % 16.9 % (20.0-50.0); MEAN CORPUSCULAR HEMOGLOBIN 27.7 pg (28.0-32.0); MEAN PLATELET VOLUME 8.9 fl (7.4-10.4); MONOCYTES % 9.3 % (2.0-8.0); NEUTROPHILS % 70.2 % (40.0-76.0); PLATELET 295 x1000/uL (130-400); RED BLOOD CELL COUNT 4.67 mill/uL (4.7-6.1)
[2020-07-27] MEDS: BLOOD SUGAR DIAGNOSTIC STRIP TEST SCH ×4 (06:45→20:22)
[2020-07-27] MEDS: INSULIN LISPRO 100 UNITS/ML SUBCUT SCH ×4 (07:15→20:22)
[2020-07-27 08:00] VITALS: BP 134/86
[2020-07-27 12:00] VITALS: BP 149/88
[2020-07-27 16:00] VITALS: BP 122/76
[2020-07-27 20:00] VITALS: BP 159/95
[2020-07-27] MEDS: ENOXAPARIN 40MG/0.4ML SYR SUBCUT SCH (20:21)
[2020-07-27] MEDS: CLONIDINE 0.1MG TABLET PO PRN (20:26)
[2020-07-28] VITALS: BP_SYST 124; BP_SYST 159; BP_DIAS 95; BP_DIAS 98
[2020-07-28] MEDS: IPRATROPIUM/ALBUTEROL 0.5-3(2.5)MG/3ML NEB HHN SCH ×6 (00:46→20:21)
[2020-07-28 04:00] VITALS: BP 168/95
[2020-07-28] MEDS: LORAZEPAM 2MG/ML CPJ IV PRN (04:21)
[2020-07-28] MEDS: CLONIDINE 0.1MG TABLET PO PRN (04:43)
[2020-07-28] MEDS: SODIUM CHLORIDE 0.9% INJ 3ML FLUSH IVF SCH ×3 (05:02→22:11)
[2020-07-28] MEDS: INSULIN LISPRO 100 UNITS/ML SUBCUT SCH ×4 (06:27→21:00)
[2020-07-28] MEDS: BLOOD SUGAR DIAGNOSTIC STRIP TEST SCH ×4 (06:27→21:38)
[2020-07-28 08:00] VITALS: BP 156/87
[2020-07-28 12:00] VITALS: BP 144/80
[2020-07-28 16:00] VITALS: BP 124/82
[2020-07-28 20:00] VITALS: BP 145/79
[2020-07-28] MEDS: ENOXAPARIN 40MG/0.4ML SYR SUBCUT SCH (20:30)
[2020-07-29] VITALS: BP 125/88
[2020-07-29] MEDS: IPRATROPIUM/ALBUTEROL 0.5-3(2.5)MG/3ML NEB HHN SCH ×3 (01:09→09:39)
[2020-07-29 04:00] VITALS: BP 151/89
[2020-07-29] MEDS: INSULIN LISPRO 100 UNITS/ML SUBCUT SCH ×2 (06:56→11:18)
[2020-07-29] MEDS: BLOOD SUGAR DIAGNOSTIC STRIP TEST SCH ×2 (06:56→11:18)
[2020-07-29] MEDS: SODIUM CHLORIDE 0.9% INJ 3ML FLUSH IVF SCH (06:56)
[2020-07-29 08:00] VITALS: BP 154/91
[2020-07-29 10:50] VITALS: BP 154/91
== END 2020-07-29 12:05 | DRG 91 ==
LOC: ER 12:57 → 5WST 16:06 → EDBEDREQSVC 16:13 → EDBEDREQ 16:13 → ENRESERV 20:28
PROVIDERS: ADMIT Internal Medicine; ATTEND Internal Medicine
PROC: 4A00X4Z Measurement of Central Nervous Electrical Activity, External Approach (ICD-10-PCS; principal; 2020-07-14)
DX: G92 Toxic encephalopathy (principal); N17.0 Acute kidney failure with tubular necrosis; J96.00 Acute respiratory failure, unspecified whether with hypoxia or hypercapnia; E46 Unspecified protein-calorie malnutrition; E87.2 Acidosis; Z66 Do not resuscitate; E11.9 Type 2 diabetes mellitus without complications; Z20.822 Contact with and (suspected) exposure to COVID-19; I95.9 Hypotension, unspecified; I10 Essential (primary) hypertension; Z68.21 Body mass index [BMI] 21.0-21.9, adult; Z79.899 Other long term (current) drug therapy; Z79.1 Long term (current) use of non-steroidal anti-inflammatories (NSAID); Z79.51 Long term (current) use of inhaled steroids; Z86.73 Personal history of transient ischemic attack (TIA), and cerebral infarction without residual deficits; W19.XXXA Unspecified fall, initial encounter; Z90.2 Acquired absence of lung [part of]; R79.89 Other specified abnormal findings of blood chemistry
CPT/HCPCS: 36415; 70551; 71045; 80048; 80053; 80061; 80305; 81003; 82550; 82553; 82607; 82962; 83605; 83880; 84145; 84439; 84443; 84484; 85025; 87426; 90686; 90732; 92610; 93005; 93970; 94640; 96365; 97116; 97162; 97164; 97530; 99291; J0360; J1200; J1650; J1815; J2060; J2543; J3370; J7030; J7060; J7608